=== PATIENT | female | born 1930 | race Caucasian/White ===

== ENCOUNTER 2016-06-29 22:45 | Emergency (ER) | payer MEDICARE, MEDICAID ==
[2016-06-29 22:54] VITALS: BMI 2530.8
--- NOTE | 2016-06-29 22:59 | EDPRACDOC ---
- General Information Stated Complaint: RESP/LT SIDE PAIN Time Seen by Provider: 06/29/16 22:47 Information Source: [employer] Mode of Arrival: Ambulance Home Medications: Home Medications Carvedilol [Coreg] 3.125 mg PO BID 06/29/16 Ergocalciferol (Vitamin D2) [Vitamin D2] 4,000 unit PO DAILY 06/29/16 Inulin [Fiber Choice] 2 gm PO TID 06/29/16 Lisinopril 2.5 mg PO BID 06/29/16 Nitrofurantoin [Macrobid] 100 mg PO BID 06/29/16 Pantoprazole Sodium [Protonix] 40 mg PO DAILY 06/29/16 Tramadol HCl/Acetaminophen [Tramadol-Acetaminophn 37.5-325] 1 each PO QID Allergies/Adverse Reactions: Allergies Allergy/AdvReac Type Severity Reaction Status Date / Time lidocaine Allergy Intermediate See Verified 06/29/16 22:55 Comments procaine HCl [From Novocain] Allergy See Verified 06/29/16 22:55 Comments - History of Present Illness HPI: PT WITH LEFT SIDED CHEST PAIN, STARTED TODAY. PRESENTS FROM [facility]. SOB. COUGHING UP GREEN SPUTUM. PT WEARS OXYGEN. NAUSEA AND ANOREXIA TODAY. DID HAVE FLU SHOT AT DR BUSTILLO'S. FREQUENT URINATION. ED Past Medical History - Patient Medical History Neurological History: Denies: Cerebrovascular Accident, Seizures, Dementia, Guillian-[place] Syndrome, Parkinson's, Multiple Sclerosis Cardiac History: Reports: Atrial Fibrillation, Hypertension, Congestive Heart Failure (EF noted to be less than 20%), Pacemaker (January 2014), Valvular Heart Disease (Mitral valve prolapse). Denies: Coronary Artery Disease, Heart Attack , Cardiac Catheterization, CABG, Syncope Respiratory History: Reports: COPD. Denies: Asthma, Pneumonia, Emphysema, Pulmonary Embolism GI/ History: Reports: Renal Disease, Kidney (Renal Surgery) (Status post left nephrectomy.), Urinary Tract Infection, Gastroesophageal Reflux, Ulcer ( Duodenal Ulcer). Denies: Kidney Stones, Diverticulosis, Pancreatitis Musculoskeletal History: Reports: Arthritis, Osteoarthritis. Denies: Gout Psychological History: Denies: Depression, Anxiety, Substance Use Disorder Systemic History: Denies: Cancer, Anemia, Diabetes, Hyperthyroidism, Hypothyroidism Surgical History: Reports: Hysterectomy, Other (s/p l. nephrectomy (? Problem with ureter), pacemaker implant. 2014). Denies: CABG, Angioplasty, Cardiac Catheterization, Hernia Surgery - Family Medical History Reports: Hypertension (mother), Cancer (maternal grandfather - throat cancer). Denies: Diabetes, Stroke, Cardiac Disorders - Social Medical History Smoking Status: Never smoker Social History: Denies: Substance Use Disorder - Physical Exam Constitutional: Alert (Awake), No apparent distress Oriented to: Time, Person, Place Last recorded Vital Signs: Oxygen Pulse Oxygen Saturation O2 Device Oxygen Flow Rate Fraction of Inspired Oxygen ( FIO2) - HEENT Head: Normal ( normocephalic) Eye Exam: Normal (PERRL, EOMI, Sclera white) Oropharynx: Normal (Pharynx:Moist without exudate,Gums-no swelling) Nose: No Symptoms Reported (septum midline) Neck: Normal (FROM, trachea at midline) - Respiratory/Cardiovascular Respiratory: Normal - CTA (BBS clear to auscultation without adventitious sounds ) Cardiovascular: Normal (RRR without murmur, gallop or rub) - GI Auscultation: Normal (NABS) Palpation: Normal (Soft,No rebound or guarding, non distended) Tenderness: Non tender Espinosa's Sign: Negative - Musculoskeletal Back: Normal (Non-Tender) Extremities: Normal (Normal tone, Pulses 2+ No cyanosis or edema, FROM) - Integumentary Skin: Normal, Warm, Dry, Other (ERYTHEMA OVER APPROX T2 SPINUS PROCESS.) Lymphatics: Normal (no adenopathy) - Neurologic Memory Impaired: Normal Motor Function: Normal (Normal tone, Pulses 2+ No cyanosis or edema, FROM) Cranial Nerve: Normal (CN II-X11 intact sensation, strength 5/5) Cerebellar: Normal Mood Description: Normal Perception: Normal - Action ASA given in the ED: No Aspirin therapy held due to: Other-specify below* (PT HAS HAD BLEEDING BEFORE ON ASPIRIN) - Results 06/29/16 23:40 06/29/16 23:40 - EKG EKG #1 EKG Time: 23:17 -: Yes EKG interpreted by me Rate: bpm: 93 [place]: Normal Rhythm: NSR Block: RBBB Comments: ABNORMAL EKG; T INVERSION INFEROLATERAL - NEW Comparison: 05/01/16 (PACED) Decision Time to Discharge: 00:45 - Departure Yes I personally saw and evaluated the patient. Disposition: Long Term Facility Condition: Stable Final Diagnosis: Cough, Left sided chest pain Instructions: Chest Pain (ED) Education/Counseling Given To: Patient Education/Counseling Given Regarding: Diagnosis Referrals: Ronak Bustillo MD [Primary Care Provider] - One Week
--- NOTE | 2016-06-29 23:49 | DIRPT ---
CLINICAL DATA: LEFT chest pain, productive cough EXAM: PORTABLE CHEST 1 VIEW COMPARISON: 04/29/2016 FINDINGS: Left-sided pacemaker overlies stable enlarged cardiac silhouette. No effusion, infiltrate, pneumothorax. Chronic soft tissue calcifications in the upper extremities unchanged. IMPRESSION: Cardiomegaly without acute cardiopulmonary process. Electronically Signed By: Zeke Enamorado M.D. On: 06/29/2016 23:46
[2016-06-30 00:09] LABS: AUTOMATED BASOPHIL 0.3 % (0-2); AUTOMATED EOSINOPHIL 0.4 % (0-5); AUTOMATED LYMPH 15.6 % (17-44); AUTOMATED MONOCYTE 10.8 % (3-10); AUTOMATED NEUTROPHIL 72.9 % (45-76); MPV 9.7 fL (7.4-10.4)
[2016-06-30 00:16] LABS: PARTIAL THROMB. TIME 28.7 SEC (22-35); PT-INR 1.1
[2016-06-30 00:18] LABS: BLOOD UREA NITROGEN 15 MG/DL (7-17); CALC CORRECTED 9.3 MG/DL (8.4-10.2); CALCIUM 8.9 MG/DL (8.4-10.2); CALCULATED OSMOLALITY 270 MOs/Kg (270-290); CHLORIDE 94 mEq/L (98-107); GLUCOSE 93 MG/DL (70-99); SODIUM LEVEL 140 mEq/L (137-146)
[2016-06-30 00:21] LABS: LEUKOCYTES/URINE NEG (NEGATIVE); NITRITE/URINE NEG (NEGATIVE); URINE OCCULT BLOOD NEG (NEG/TRACE); WBC/URINE 0-2 (0-5)
[2016-06-30] MEDS: ASPIRIN (CHEWABLE) 81 MG TAB PO ONE ×2 (01:11→01:15)
[2016-06-30 02:01] VITALS: BP 134/71; PULSE 90; TEMP 98
== END 2016-06-30 01:59 ==
LOC: ED 22:45
DX: R05 Cough (principal); R07.89 Other chest pain
CPT/HCPCS: 36415; 71010; 80053; 81001; 83880; 84484; 85025; 85610; 85730; 87040; 87804; 93005; 99284; A9270; J3490

== ENCOUNTER 2016-07-07 10:24 | Emergency (ER) | payer MEDICARE, MEDICAID ==
[2016-07-07 10:32] VITALS: TEMP 97.9; BMI 19.8
--- NOTE | 2016-07-07 10:36 | EDPRACDOC ---
- General Information Chief Complaint: Generalized Weakness Stated Complaint: WEAKNESS Time Seen by Provider: 07/07/16 10:27 Information Source: [employer] Home Medications: Home Medications Carvedilol [Coreg] 3.125 mg PO BID 06/29/16 Inulin [Fiber Choice] 2 gm PO TID 06/29/16 Lisinopril 2.5 mg PO BID 06/29/16 Nitrofurantoin [Macrobid] 100 mg PO BID 06/29/16 Pantoprazole Sodium [Protonix] 40 mg PO DAILY 06/29/16 Tramadol HCl/Acetaminophen [Tramadol-Acetaminophn 37.5-325] 1 each PO QID Acetaminophen Ex Str Tablet [TYLENOL EXTRA STRENGTH Tablet] 1,000 mg PO Q6H PRN 07/07/16 Acetaminophen Ex Str Tablet [TYLENOL EXTRA STRENGTH Tablet] 1,000 mg PO Q6H PRN 07/07/16 Acetaminophen [Tylenol] 325 mg PO Q4H PRN 07/07/16 Amoxicillin/Potassium Clav [Augmentin 875-125 Tablet] 1 each PO Q12H 07/07/16 Benzonatate 200 mg PO Q8H PRN 07/07/16 Ergocalciferol (Vitamin D2) [Vitamin D] 50,000 units PO FR@0800 07/07/16 Guaifenesin [Robitussin] 15 ml PO TID PRN 07/07/16 Loperamide HCl [Imodium] 2 mg PO DIR PRN 07/07/16 Magnesium Hydroxide/Al Hydrox [Mylanta Liquid] 30 ml PO Q3H PRN 07/07/16 Ondansetron HCl [Zofran] 4 mg PO Q6H PRN 07/07/16 Oseltamivir Phosphate [Tamiflu] 75 mg PO .[id number] 07/07/16 Oxycodone Immediate Release [Oxycodone Immediate Release (OxyIR)] 5 mg PO Q6H PRN 07/07/16 Phosp Acid/Dextrose/Fructose [Anti-Nausea Liquid] 30 ml PO .[id number] PRN 06/11 Polyethylene Glycol 3350 [Miralax] 17 gm PO DAILY PRN 07/07/16 Zinc Oxide [Secura Extra Protective] 92 gm TOP BID PRN 07/07/16 Allergies/Adverse Reactions: Allergies Allergy/AdvReac Type Severity Reaction Status Date / Time lidocaine Allergy Intermediate See Verified 07/07/16 12:19 Comments procaine HCl [From Novocain] Allergy See Verified 07/07/16 12:19 Comments - History of Present Illness Onset: today Exact Onset of Symptoms: Unknown HPI: PT WAS AT PHYSICAL THERAPY TODAY DEVELOPED GENERALIZED WEAKNESS, SOBR, COUGH, FEVER. PT STATES CURRENTLY ON 2 DIFFERENT ABX FOR UTI. PT DENIES N/V, NO CP, COMPLAINS OF PAIN IN LEFT SIDE OF HER ABD. Symptoms Started: Reports: Suddenly Symptoms Description: Constant Weakness: Bilateral: Generalized Symptoms: Reports: Weak. Denies: Change of vision, Difficult speech, Faintness , Imbalance, Numbness, Near Syncope, Syncope, Tinnitus, Vertigo Symptom Severity: Reports: Unable to performs ADL's Relevant History of: Denies: Anemia, CVA, DM, Electrolyte disorder, GI Bleed, [place] , TIA Associated signs and symptoms:: Reports: Fever, Nausea. Denies: GI Bleed, Chest pain, Diarrhea, Headache, Palpitations, Vomiting ED Past Medical History - History Reviewed Yes Nurses notes reviewed and agree except as marked - Patient Medical History Neurological History: Denies: Cerebrovascular Accident, Seizures, Dementia, Guillian-[place] Syndrome, Parkinson's, Multiple Sclerosis Cardiac History: Reports: Atrial Fibrillation, Hypertension, Congestive Heart Failure (EF noted to be less than 20%), Pacemaker (January 2014), Valvular Heart Disease (Mitral valve prolapse). Denies: Coronary Artery Disease, Heart Attack , Cardiac Catheterization, CABG, Syncope Respiratory History: Reports: COPD. Denies: Asthma, Pneumonia, Emphysema, Pulmonary Embolism GI/ History: Reports: Renal Disease, Kidney (Renal Surgery) (Status post left nephrectomy.), Urinary Tract Infection, Gastroesophageal Reflux, Ulcer ( Duodenal Ulcer). Denies: Kidney Stones, Diverticulosis, Pancreatitis Musculoskeletal History: Reports: Arthritis, Osteoarthritis. Denies: Gout Psychological History: Denies: Depression, Anxiety, Substance Use Disorder Systemic History: Denies: Cancer, Anemia, Diabetes, Hyperthyroidism, Hypothyroidism Surgical History: Reports: Hysterectomy, Other (s/p l. nephrectomy (? Problem with ureter), pacemaker implant. 2013). Denies: CABG, Angioplasty, Cardiac Catheterization, Hernia Surgery - Family Medical History Reports: Hypertension (mother), Cancer (maternal grandfather - throat cancer). Denies: Diabetes, Stroke, Cardiac Disorders - Social Medical History Smoking Status: Never smoker Social History: Denies: Substance Use Disorder ETOH: None Substance Abuse: None Lives In: Assisted Living EDM Review of Systems - Review of Systems Constitutional: Fever, Fatigue, Weakness Eyes: negative: Blurred Vision, Double Vision Ears: negative: Drainage Throat: negative: Pain Nose: negative: Congestion, Discharge Respiratory: Shortness of Breath. negative: Cough, Wheezing Cardiovascular: negative: Chest Pain, Palpitations Gastrointestinal: Nausea, Pain. negative: Diarrhea, Vomiting Genitourinary: negative: Dysuria, Frequency Neurological: No Symptoms Reported Musculoskeletal: No Symptoms Reported Integumentary: No Symptoms Reported - Physical Exam Constitutional: Alert (Awake), No apparent distress Oriented to: Time, Person, Place Last recorded Vital Signs: Last Vital Signs Temp 97.9 F 07/07/16 10:25 Pulse 173 H 07/07/16 10:25 Resp 22 07/07/16 10:25 BP 123/81 07/07/16 10:25 Pulse Ox 92 07/07/16 10:25 Oxygen Pulse Oxygen Saturation 92 O2 Device Nasal Cannula Oxygen Flow Rate 3 Fraction of Inspired Oxygen ( FIO2) - HEENT Head: Normal ( normocephalic) Eye Exam: Normal (PERRL, EOMI, Sclera white) Oropharynx: Normal (Pharynx:Moist without exudate,Gums-no swelling) Tympanic Membrane: Normal ENT EAC: Normal TMJ: Normal Nose: No Symptoms Reported (septum midline) Neck: Normal (FROM, trachea at midline) - Respiratory/Cardiovascular Respiratory: Normal - CTA (BBS clear to auscultation without adventitious sounds ) Cardiovascular: Tachycardia, Irregular - GI Auscultation: Normal (NABS) Palpation: Normal (Soft,No rebound or guarding, non distended) Tenderness: Non tender Espinosa's Sign: Negative - Musculoskeletal Back: Normal (Non-Tender) Extremities: Normal (Normal tone, Pulses 2+ No cyanosis or edema, FROM) - Integumentary Skin: Normal, Warm, Dry Lymphatics: Normal (no adenopathy) - Neurologic Memory Impaired: Normal Motor Function: Normal (Normal tone, Pulses 2+ No cyanosis or edema, FROM) Cranial Nerve: Normal (CN II-X11 intact sensation, strength 5/5) Cerebellar: Normal Mood Description: Normal Perception: Normal - Differential Diagnosis Anemia, Dehydration, Dysrhythmia, Electrolyte disorder, TIA - Re-evaluation Re-evaluation 1 Re-evaluation Time: 11:32 (PT STATES STOOLS "DARK" FOR A WHILE, DOES NOT TAKE ASPIRIN OR OTHER BLOOD THINNER) Re-evaluation 2 Re-evaluation Time: 15:18 (FEELS BETTER AFTER FLUIDS, BP UP, HEART RATE STABLE) - Results 07/07/16 12:04 07/07/16 11:21 07/07/16 15:18 Laboratory Results - last 24 hr 07/07/16 07/07/16 07/07/16 10:33 10:33 10:33 WBC Cancelled RBC Cancelled Hgb Cancelled Hct Cancelled MCV Cancelled MCH Cancelled MCHC Cancelled RDW Cancelled Plt Count Cancelled MPV Cancelled Neut % (Auto) Cancelled Lymph % (Auto) Cancelled [place] % (Auto) Cancelled Eos % (Auto) Cancelled Baso % (Auto) Cancelled Absolute Neuts (auto) Cancelled Absolute Lymphs (auto) Cancelled Seg Neuts % (Manual) Cancelled Band Neutrophils % Cancelled Lymphocytes % (Manual) Cancelled Monocytes % (Manual) Cancelled Eosinophils % (Manual) Cancelled Basophils % (Manual) Cancelled Metamyelocytes % Cancelled Myelocytes % Cancelled Promyelocytes % Cancelled Absolute Neutrophils Cancelled Absolute Lymphocytes Cancelled Nucl RBC Rel Cnt (Man) Cancelled Vacuolated Neuts Cancelled Atypical Lymphocytes Cancelled Blast Cells Cancelled Toxic Granulation Cancelled Dohle Bodies Cancelled Platelet Estimate Cancelled RBC Morphology Cancelled PT Cancelled INR Cancelled APTT Cancelled Sodium Potassium Chloride Carbon Dioxide Anion Gap BUN Creatinine Estimated GFR (MDRD) Glucose Calculated Osmolality Lactic Acid 0.6 L Calcium Corrected Calcium Total Bilirubin AST ALT Alkaline Phosphatase Troponin I Total Protein Albumin Lipase Urine Color Urine Clarity Urine pH Ur Specific [place] Urine Protein Urine Glucose (UA) Urine Ketones Urine Occult Blood Urine Nitrite Urine Bilirubin Urine Urobilinogen Ur Leukocyte Esterase Urine RBC Urine WBC Urine Bacteria Hyaline Casts Urine Mucus Blood Type Antibody Screen 07/07/16 07/07/16 07/07/16 10:43 11:21 12:04 WBC RBC Hgb Hct MCV MCH MCHC RDW Plt Count MPV Neut % (Auto) Lymph % (Auto) [place] % (Auto) Eos % (Auto) Baso % (Auto) Absolute Neuts (auto) Absolute Lymphs (auto) Seg Neuts % (Manual) Band Neutrophils % Lymphocytes % (Manual) Monocytes % (Manual) Eosinophils % (Manual) Basophils % (Manual) Metamyelocytes % Myelocytes % Promyelocytes % Absolute Neutrophils Absolute Lymphocytes Nucl RBC Rel Cnt (Man) Vacuolated Neuts Atypical Lymphocytes Blast Cells Toxic Granulation Dohle Bodies Platelet Estimate RBC Morphology PT INR APTT Sodium 141 Potassium 4.5 Chloride 93 L Carbon Dioxide 40 H Anion Gap 13 BUN 17 Creatinine 0.50 L Estimated GFR (MDRD) > 60 Glucose 93 Calculated Osmolality 273 Lactic Acid Calcium 9.0 Corrected Calcium 9.5 Total Bilirubin 0.9 AST 26 ALT 21 Alkaline Phosphatase 68 Troponin I < 0.01 Total Protein 6.6 Albumin 3.5 Lipase 42 Urine Color Yellow Urine Clarity Clear Urine pH 6.0 Ur Specific [place] 1.010 Urine Protein Neg Urine Glucose (UA) Neg Urine Ketones 2+ H Urine Occult Blood 2+ H Urine Nitrite Neg Urine Bilirubin Neg Urine Urobilinogen <2.0 Ur Leukocyte Esterase Trace H Urine RBC Tntc H Urine WBC 0-2 Urine Bacteria Few Hyaline Casts 2-5 H Urine Mucus Occ Blood Type Cancelled Antibody Screen Cancelled 07/07/16 07/07/16 12:04 12:04 WBC 11.1 H RBC 3.68 L Hgb 11.3 L Hct 36.9 MCV 100 H MCH 30.9 MCHC 30.8 L RDW 15.1 H Plt Count 139 MPV 8.3 Neut % (Auto) 76.8 H Lymph % (Auto) 15.4 L [place] % (Auto) 7.1 Eos % (Auto) 0.3 Baso % (Auto) 0.4 Absolute Neuts (auto) 8.44 H Absolute Lymphs (auto) 1.67 Seg Neuts % (Manual) Band Neutrophils % Lymphocytes % (Manual) Monocytes % (Manual) Eosinophils % (Manual) Basophils % (Manual) Metamyelocytes % Myelocytes % Promyelocytes % Absolute Neutrophils Absolute Lymphocytes Nucl RBC Rel Cnt (Man) Vacuolated Neuts Atypical Lymphocytes Blast Cells Toxic Granulation Dohle Bodies Platelet Estimate RBC Morphology PT 11.6 H INR 1.1 APTT 28.2 Sodium Potassium Chloride Carbon Dioxide Anion Gap BUN Creatinine Estimated GFR (MDRD) Glucose Calculated Osmolality Lactic Acid Calcium Corrected Calcium Total Bilirubin AST ALT Alkaline Phosphatase Troponin I Total Protein Albumin Lipase Urine Color Urine Clarity Urine pH Ur Specific [place] Urine Protein Urine Glucose (UA) Urine Ketones Urine Occult Blood Urine Nitrite Urine Bilirubin Urine Urobilinogen Ur Leukocyte Esterase Urine RBC Urine WBC Urine Bacteria Hyaline Casts Urine Mucus Blood Type Antibody Screen - EKG EKG #1 EKG Time: 10:30 -: Yes EKG interpreted by me Rate: bpm: 171 [place]: Normal Rhythm: Aflutter Block: None Hypertrophy: None ST: Nonsp Comparison: 06/29/16 (NO CHANE X RATE) - Diagnostic Imaging CXR Image interpreted by: Radiologist PORTABLE CHEST 1 VIEW COMPARISON: 06/29/2016 and 04/29/2016. FINDINGS: 1101 hours. Left subclavian AICD leads appear unchanged. The heart size and mediastinal contours are stable. There is mild chronic scarring at the left lung base. The lungs are otherwise clear. There is no pleural effusion or pneumothorax. Extensive soft tissue calcifications are noted in the upper arms bilaterally. IMPRESSION: Stable chest without evidence of acute cardiopulmonary process. Extensive soft tissue calcifications in the upper arms bilaterally suggesting connective tissue disease. CT ABD/PELVIS Image interpreted by: Radiologist CT ABDOMEN AND PELVIS WITH CONTRAST TECHNIQUE: Multidetector CT imaging of the abdomen and pelvis was performed using the standard protocol following bolus administration of intravenous contrast. CONTRAST: 100 ml Isovue 370. COMPARISON: Abdominal ultrasound 05/02/2016. CT 05/01/2016 and 06/23/2015. FINDINGS: Lower chest: New small left pleural effusion with increased dependent opacity in the left lower lobe. Mild right lower lobe atelectasis appears unchanged. The heart is enlarged. Patient has a pacemaker. Hepatobiliary: Stable chronic intra and extrahepatic biliary dilatation with distention of the gallbladder. The common bile duct measures up to 1.7 cm in diameter and is dilated to the ampulla. No calcified intraductal stones are identified. The liver appears unchanged without focal abnormality. Pancreas: Stable pancreatic atrophy and mild prominence of the pancreatic duct. No evidence of pancreatic mass or surrounding inflammation. Spleen: Normal in size without focal abnormality. Adrenals/Urinary Tract: Both adrenal glands appear normal. The right kidney has a stable appearance. 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 There is no evidence of renal mass or hydronephrosis. The distal right ureter is not well visualized, but there is no evidence of ureteral or bladder calculus. Previous left nephrectomy. Stomach/Bowel: No evidence of bowel wall thickening, distention or surrounding inflammatory change. Vascular/Lymphatic: There are no enlarged abdominal or pelvic lymph nodes. Stable mild atherosclerosis of the aorta, its branches and the iliac arteries. Reproductive: Surgically absent. No adnexal mass. Other: No evidence of abdominal wall mass or hernia. Musculoskeletal: No acute or significant osseous findings. The bones are diffusely demineralized. There is a stable chronic biconcave compression deformity at L5. There are stable extensive subcutaneous and muscular calcifications in the buttocks and proximal thighs bilaterally suggesting chronic connective tissue disorder. IMPRESSION: 1. No acute abdominal findings or significant changes compared with the prior CT of 2 months ago. 2. Chronic biliary dilatation, unchanged from recent study, but mildly progressive compared with older prior studies. No calcified intraductal stones identified. 3. Nonobstructing right renal calculi. 4. New small left pleural effusion with increased left lower lobe atelectasis. Decision Time to Discharge: 15:19 - Departure Disposition: Home Condition: Stable Final Diagnosis: Generalized weakness, Dehydration Afib Qualifiers: Atrial fibrillation type: chronic Qualified Code(s): I48.2 - Chronic atrial fibrillation Instructions: Weakness (General), Atrial Fibrillation (ED) Education/Counseling Given To: Patient Education/Counseling Given Regarding: Diagnosis, Treatment, Prognosis, Follow Up Referrals: Michelle Vásquez MD [Primary Care Provider] - One Week Additional Instructions: REST, DRINK PLENTY OF FLUIDS, CONTINUE YOUR USUAL MEDICATIONS BEFORE, RETURN TO THE ED FOR ANY WORSENING SYMPTOMS OR CONCERNS.
[2016-07-07] MEDS ORDERED: NS 1,000 ML IV ONE (10:37)
[2016-07-07] MEDS ORDERED: METOPROLOL 5 MG/5 ML SDV IV ONE ×2 (10:38→10:51)
[2016-07-07 10:58] LABS: LEUKOCYTES/URINE TRACE (NEGATIVE); NITRITE/URINE NEG (NEGATIVE); RBC/URINE TNTC (0-5); URINE OCCULT BLOOD 2+ (NEG/TRACE); WBC/URINE 0-2 (0-5)
[2016-07-07 11:45] LABS: BLOOD UREA NITROGEN 17 MG/DL (7-17); CALC CORRECTED 9.5 MG/DL (8.4-10.2); CALCULATED OSMOLALITY 273 MOs/Kg (270-290); CHLORIDE 93 mEq/L (98-107); GLUCOSE 93 MG/DL (70-99); SODIUM LEVEL 141 mEq/L (137-146); TOTAL PROTEIN 6.6 G/DL (6.3-8.2)
[2016-07-07] MEDS ORDERED: OXYCODONE HCL 5 MG TABLET PO ONE (11:45)
[2016-07-07] MEDS ORDERED: PANTOPRAZOLE 40 MG VIAL IV ONE (11:45)
--- NOTE | 2016-07-07 11:55 | DIRPT ---
CLINICAL DATA: Generalized weakness with shortness of breath, cough and fever. Sepsis. EXAM: PORTABLE CHEST 1 VIEW COMPARISON: 06/29/2016 and 04/29/2016. FINDINGS: 1101 hours. Left subclavian AICD leads appear unchanged. The heart size and mediastinal contours are stable. There is mild chronic scarring at the left lung base. The lungs are otherwise clear. There is no pleural effusion or pneumothorax. Extensive soft tissue calcifications are noted in the upper arms bilaterally. IMPRESSION: Stable chest without evidence of acute cardiopulmonary process. Extensive soft tissue calcifications in the upper arms bilaterally suggesting connective tissue disease. Electronically Signed By: Chris Carson M.D. On: 07/07/2016 11:52
[2016-07-07 12:19] LABS: AUTOMATED BASOPHIL 0.4 % (0-2); AUTOMATED EOSINOPHIL 0.3 % (0-5); AUTOMATED LYMPH 15.4 % (17-44); AUTOMATED MONOCYTE 7.1 % (3-10); AUTOMATED NEUTROPHIL 76.8 % (45-76); MPV 8.3 fL (7.4-10.4)
[2016-07-07 12:35] LABS: PARTIAL THROMB. TIME 28.2 SEC (22-35); PT-INR 1.1
[2016-07-07] MEDS ORDERED: NS 500 ML IV ONE (13:02)
[2016-07-07] MEDS ORDERED: Pharmacy Review for Metformin - IV Contrast Given SCH (14:00)
--- NOTE | 2016-07-07 14:49 | DIRPT ---
CLINICAL DATA: 85-year-old with abdominal pain and fever. History of appendectomy, hysterectomy and left nephrectomy. No history of malignancy. EXAM: CT ABDOMEN AND PELVIS WITH CONTRAST TECHNIQUE: Multidetector CT imaging of the abdomen and pelvis was performed using the standard protocol following bolus administration of intravenous contrast. CONTRAST: 100 ml Isovue 370. COMPARISON: Abdominal ultrasound 05/02/2016. CT 05/01/2016 and 06/23/2015. FINDINGS: Lower chest: New small left pleural effusion with increased dependent opacity in the left lower lobe. Mild right lower lobe atelectasis appears unchanged. The heart is enlarged. Patient has a pacemaker. Hepatobiliary: Stable chronic intra and extrahepatic biliary dilatation with distention of the gallbladder. The common bile duct measures up to 1.7 cm in diameter and is dilated to the ampulla. No calcified intraductal stones are identified. The liver appears unchanged without focal abnormality. Pancreas: Stable pancreatic atrophy and mild prominence of the pancreatic duct. No evidence of pancreatic mass or surrounding inflammation. Spleen: Normal in size without focal abnormality. Adrenals/Urinary Tract: Both adrenal glands appear normal. The right kidney has a stable appearance. 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 There is no evidence of renal mass or hydronephrosis. The distal right ureter is not well visualized, but there is no evidence of ureteral or bladder calculus. Previous left nephrectomy. Stomach/Bowel: No evidence of bowel wall thickening, distention or surrounding inflammatory change. Vascular/Lymphatic: There are no enlarged abdominal or pelvic lymph nodes. Stable mild atherosclerosis of the aorta, its branches and the iliac arteries. Reproductive: Surgically absent. No adnexal mass. Other: No evidence of abdominal wall mass or hernia. Musculoskeletal: No acute or significant osseous findings. The bones are diffusely demineralized. There is a stable chronic biconcave compression deformity at L5. There are stable extensive subcutaneous and muscular calcifications in the buttocks and proximal thighs bilaterally suggesting chronic connective tissue disorder. IMPRESSION: 1. No acute abdominal findings or significant changes compared with the prior CT of 2 months ago. 2. Chronic biliary dilatation, unchanged from recent study, but mildly progressive compared with older prior studies. No calcified intraductal stones identified. 3. Nonobstructing right renal calculi. 4. New small left pleural effusion with increased left lower lobe atelectasis. Electronically Signed By: Chris Carson M.D. On: 07/07/2016 14:46
[2016-07-07 16:08] VITALS: BP 141/81; PULSE 116
== END 2016-07-07 16:40 ==
LOC: ED 10:24
DX: E86.0 Dehydration (principal); I48.2 Chronic atrial fibrillation; R53.1 Weakness; N20.0 Calculus of kidney
CPT/HCPCS: 36415; 71010; 74177; 80053; 81001; 82270; 83605; 83690; 84484; 85025; 85610; 85730; 87040; 87086; 93005; 96361; 96374; 96375; 99284; A9270; A9698; J3490; S0164